=== PATIENT | male | born 1945 | race Caucasian/White ===

== ENCOUNTER 2020-02-17 08:16 | Emergency (ER) | payer MEDICARE, SELFPAY ==
--- NOTE | ~2020-02-17 | XR_ITS ---
EXAMINATION: XR ribs RT 2V w CXR 2V EXAM DATE: 02/17/2020 08:53 INDICATION: Initial encounter following injury, with pain of the right ribs posteriorly. TECHNIQUE: Frontal projection of the upper right ribs, frontal projection of the lower right ribs, ob lique projection of the right ribs, frontal and lateral chest x-ray(s) for interpretation. There is no prior study for comparison. FINDINGS: Right 8th and 11th rib fractures laterally which appears old. There are no displaced acute right rib fractures identified. There is no soft tissue abnormality seen. No confluent consolidation , pneumothorax or pleural effusion suspected. Cardiomediastinal silhouette is normal. Mild thoracic s pondylosis. IMPRESSION: Right 8th, 11th rib fractures likely old. No acute fractures identified. Consider educati ng patient that even if there is a radiographically occult nondisplaced acute rib fracture, there is no specific treatment other than to refrain from activity that prevents healing. Reviewed, dictated and finalized at location A. [facility] [employer] IMPRESSION: Right 8th, 11th rib fractures likely old. No acute fractures identi fied. Consider educating patient that even if there is a radiographically occul t nondisplaced acute rib fracture, there is no specific treatment other than to refrain from activity that prevents healing.
[2020-02-17 08:20] VITALS: BP 112/64; PULSE 75; RESP 20; TEMP 36.6; O2SAT 99
--- NOTE | 2020-02-17 08:30 | ED.GENADULT ---
HPI - General Adult General Chief complaint: Fall Stated complaint: fall poss broken ribs Time Seen by Provider: 02/17/20 08:30 Source: patient Mode of arrival: ambulatory Limitations: no limitations History of Present Illness HPI narrative: 74 year old male who presents to express care with complaints of falling at home early this morning at home in his bathroom hitting his right chest on the toilet paper dispenser, denies hitting his head. Patient states that he got dizzy and he passed out he thinks, reports that he has not slept for 4 days. Patient also reports that he went to the emergency room at [facility] ER yesterday evening because of his inability to sleep for the past 4 days and they sent him home treating him like a 'crack pot'. Patient reports that he has lost about 20 pounds in the past month. Patient has history of myasthenia gravis and sees Dr Castellon his neurologist at [facility] in [place]. Patient also states that he is scheduled for a sleep study at [facility]. Patient's medication history showed filling of Buspirone on 01/22/20 which patient states that he took for 2 weeks then he was put on Lorazepam on the and states he took only for 3 nights. states that patient is sleeping some but not resting well, appetite is down and she has to make him eat. complaint: pain to right chest from fall at home Onset (ago): hour(s) (2 hours) Location: chest (right chest) Radiation: non-radiation Severity: moderate Severity scale (1-10): 5 Quality: aching Pain Consistency: constant Relieving factors: none Exacerbating factors: movement Associated symptoms: other (lack of appetite, difficulty sleeping) Treatments prior to arrival: other (Tylenol) Related Data Home Medications Medication Instructions Recorded Confirmed chlorthalidone 25 mg PO DAILY 02/04/19 02/04/19 lovastatin 20 mg PO DAILY 02/04/19 02/04/19 prednisone 5 mg PO DAILY 02/04/19 02/04/19 pyridostigmine bromide 60 mg PO BID 02/04/19 02/04/19 tamsulosin 0.4 mg PO DAILY 02/04/19 02/04/19 ascorbate calcium (vitamin C) 500 mg PO BID 02/17/20 02/17/20 aspirin 81 mg PO DAILY 02/17/20 02/17/20 azathioprine 100 mg PO BID 02/17/20 02/17/20 coenzyme Q10 [CoQ-10] 100 mg PO DAILY 02/17/20 02/17/20 epougxcn-exl-YV-lycopen-lutein 1 tablet PO DAILY 02/17/20 02/17/20 [Centrum Silver Men] Allergies Allergy/AdvReac Type Severity Reaction Status Date / Time No Known Allergies Allergy Unknown Verified 02/17/20 08:40 Review of Systems Review of Systems: Narrative: CONSTITUTIONAL: Denies fever, chills, or sweats. EYES: Denies visual changes, redness, or discharge. ENT: Denies rhinorrhea, congestion, sore throat, or otalgia. CARDIOVASCULAR:positive for right lateral and posterior chest pain,no palpitations, or edema. RESPIRATORY: Denies cough or dyspnea. GASTROINTESTINAL: Denies abdominal pain, nausea, vomiting, or diarrhea. GENITOURINARY: Denies dysuria or hematuria. SKIN: Denies rash or itching. MUSCULOSKELETAL: Denies back pain, joint pain, or myalgia. NEUROLOGIC: Denies headache, numbness, or acute weakness patient is on medication for myasthenia gravis and follows with Dr Castellon at [facility] in [place]. PSYCHIATRIC: Positive for history of anxiety or depression. All systems reviewed & are unremarkable except as noted in HPI and below PMFSH Past Medical History Medical History (Updated 02/17/20 @ 09:55 by Jennifer Soto NP) Dupuytren contracture History of melanoma Hypercholesterolemia Hypertension Kidney stones Myasthenia gravis Surgical History Surgical History (Updated 02/17/20 @ 09:55 by Jennifer Soto NP) History of total hip arthroplasty Hx of hand surgery Social History Social History (Updated 02/17/20 @ 09:56 by Jennifer Soto NP) Smoking status: Never smoker Alcohol intake: current Alcohol use details: socially Substance use: never Living arrangements: with family Occupation/Education: re
== END 2020-02-17 09:25 | disposition home or self-care (01) ==
PROVIDERS: Emergency Provider Registered Nurse; PCP Physician Assistant
DX: S20.211A Contusion of right front wall of thorax, initial encounter (principal); W19.XXXA Unspecified fall, initial encounter; G70.00 Myasthenia gravis without (acute) exacerbation; I10 Essential (primary) hypertension; E78.00 Pure hypercholesterolemia, unspecified; Z85.820 Personal history of malignant melanoma of skin
CPT/HCPCS: 71046; 71100; 99213; G0463

== ENCOUNTER 2022-07-05 15:25 | Emergency (ER) | payer MEDICARE, SELFPAY ==
[2022-07-05 15:36] VITALS: BP 151/63; PULSE 68; RESP 20; TEMP 37.1; O2SAT 98
--- NOTE | 2022-07-05 16:31 | ED.BACK ---
HPI - Back Pain/Injury General Chief Complaint: Back Pain/Injury Stated Complaint: pain in lower back Source: patient and RN notes reviewed History of Present Illness HPI Narrative: 68-year-old male presents to urgent care with complaints worsening right lower back pain that radiates down his right leg. Patient states most of his pain is right buttocks and right anterior knee. Patient states the pain worsens with extended periods of standing or with lying down. Patient denies any numbness or tingling. Denies any saddle anesthesia, incontinence of urine or stool, fevers, chills, or dysuria. Patient has been taking 400 mg ibuprofen once a day with minimal relief. Patient was seen his chiropractor's office today and was adjusted after negative x-rays were obtained. Patient states he does pain is getting better and then later today his pain began to worsen again. Patient was instructed to come here for analgesics and he is planning on following up his chiropractor on Tuesday. Denies any chest pain, shortness of breath, or vomiting. Related Data Home Medications Medication Instructions Recorded Confirmed amlodipine 5 mg tablet 5 mg PO DIRECTED 07/05/22 07/05/22 finasteride 5 mg tablet 5 mg PO DIRECTED 07/05/22 07/05/22 lovastatin 20 mg tablet 20 mg PO DIRECTED 07/05/22 07/05/22 prednisone 5 mg tablet 5 mg PO DIRECTED 07/05/22 07/05/22 pyridostigmine bromide 60 mg tablet 60 mg PO DIRECTED 07/05/22 07/05/22 quetiapine 25 mg tablet 25 mg PO DIRECTED 07/05/22 07/05/22 tamsulosin 0.4 mg capsule 0.4 mg PO DIRECTED 07/05/22 07/05/22 Allergies Allergy/AdvReac Type Severity Reaction Status Date / Time No Known Allergies Allergy Verified 07/05/22 15:43 Review of Systems Review of Systems: Pertinent positives and pertinent negatives per HPI. PMFSH Comments At the time of my signature, I reviewed and agree with the nursing past medical, surgical, social, and family history. There is no relevant family history pertinent to the patient complaint. Exam Narrative: GENERAL: This is a well-nourished, well-developed patient, in no apparent distress. HEAD: normocephalic, atraumatic. EYES: Sclera clear/white. Vision is grossly intact. EARS: External ears normal, auditory canals clear and without drainage. Hearing grossly intact. NOSE: External nose normal with no obvious nasal discharge, nares without redness, no rhinorrhea. THROAT: Mucous membranes moist, posterior pharynx clear. NECK: Neck supple, non-tender without lymphadenopathy, masses or thyromegaly. CARDIOVASCULAR: Regular rate and rhythm without murmurs, gallops, or rubs. RESPIRATORY: Clear to auscultation. Breath sounds equal bilaterally. No wheezes, rales, or rhonchi. GASTROINTESTINAL: Abdomen soft, non-tender, nondistended. Bowel sounds are active. No hepato-splenomegaly, or palpable masses. No guarding. SKIN: warm, intact with no suspicious lesions or rash, good texture and turgor. NEURO: awake, alert, and oriented to person, place and time. There were no obvious focal neurologic abnormalities. EXTREMITIES: No clubbing, cyanosis, or edema. No joint tenderness, effusion, or edema noted. BACK: Nontender without deformity or crepitance. No flank tenderness. Course Course Level of Care: Express Care Visit Vital Signs Vital signs: Vital Signs Temperature 98.8 F 07/05/22 15:36 Pulse Rate 68 07/05/22 15:36 Respiratory Rate 20 07/05/22 15:36 Blood Pressure 151/63 H 07/05/22 15:36 Pulse Oximetry 98 07/05/22 15:36 Oxygen Delivery Room Air 07/05/22 15:36 Temperature 98.8 F 07/05/22 15:36 Pulse Rate 68 07/05/22 15:36 Respiratory Rate 20 07/05/22 15:36 Blood Pressure 151/63 H 07/05/22 15:36 Pulse Oximetry 98 07/05/22 15:36 Oxygen Delivery Room Air 07/05/22 15:36 reviewed. MDM - Back Pain/Injury MDM Narrative Medical decision making narrative: Call your neurologist first thing in the morning to confirm it humberto
== END 2022-07-05 16:36 | disposition home or self-care (01) ==
PROVIDERS: Emergency Provider Nurse Practitioner Family; PCP Physician Assistant
DX: M54.32 Sciatica, left side (principal); E78.00 Pure hypercholesterolemia, unspecified; I10 Essential (primary) hypertension; Z96.643 Presence of artificial hip joint, bilateral
CPT/HCPCS: 99213; G0463